=== PATIENT | female | born 1990 ===

== ENCOUNTER 2017-11-29 11:48 | Emergency (ER) | payer MEDICAID ==
[2017-11-29 11:48] VITALS: BMI 36.6
[2017-11-29 11:56] VITALS: BP 131/85; PULSE 128; RESP 16; TEMP 98.8; O2SAT 100
--- NOTE | 2017-11-29 12:26 | C.PDOC ---
History Of Present Illness 27 year old female presents to the ER complaining of 4 day history of fever, sore throat, coughing, nasal congestion, and generalized body aches. Patient states that she checked her body temperature at home, and her highest temperature was 101F. Patient reports that she took Tylenol. She admits her son is sick as well at home. Time Seen by Provider: 11/29/17 12:16 Chief Complaint (Nursing): Flu-like Symptoms History Per: Patient History/Exam Limitations: no limitations Onset/Duration Of Symptoms: Days Current Symptoms Are (Timing): Still Present Location Of Pain: Diffuse Myalgias, Headache Associated Symptoms: Fever, Sore Throat, Cough, Nasal Congestion Severity: Moderate Past Medical History Reviewed: Historical Data, Nursing Documentation, Vital Signs Vital Signs: Last Vital Signs Temp 98.8 F 11/29/17 11:51 Pulse 128 H 11/29/17 11:51 Resp 16 11/29/17 11:51 BP 131/85 11/29/17 11:51 Pulse Ox 100 11/29/17 12:57 - Medical History PMH: Diabetes Surgical History: No Surg Hx - [facility] Procedures EXC LES TEND SHEATH HAND (02/23/15) EXTRACTION OF POC, LOW CERVICAL, OPEN APPROACH (12/28/15) INTRODUCE OF OTH THERAP SUBST INTO FEM REPROD, VIA OPENING (12/28/15) Family History: States: No Known Family Hx - Social History Hx Tobacco Use: No Hx Alcohol Use: No Hx Substance Use: No - Immunization History Hx Tetanus Toxoid Vaccination: Yes Hx Influenza Vaccination: No Hx Pneumococcal Vaccination: No Review Of Systems Except As Marked, All Systems Reviewed And Found Negative. Constitutional: Positive for: Fever, Malaise. Negative for: Chills Eyes: Negative for: Vision Change, Redness ENT: Positive for: Nose Congestion, Throat Pain Cardiovascular: Negative for: Chest Pain, Palpitations Respiratory: Positive for: Cough. Negative for: Shortness of Breath, Wheezing Gastrointestinal: Negative for: Vomiting, Abdominal Pain, Diarrhea Genitourinary: Negative for: Dysuria Musculoskeletal: Positive for: Other (bodyaches) Skin: Negative for: Rash Neurological: Positive for: Headache. Negative for: Weakness, Numbness Physical Exam - Physical Exam Appears: Non-toxic, No Acute Distress Skin: Normal Color, Warm, Dry, No Rash Head: Atraumatic, Normacephalic Eye(s): bilateral: Normal Inspection, PERRL, EOMI Ear(s): Bilateral: Normal (no erythema) Nose: Normal Oral Mucosa: Moist Throat: Erythema (mild to posterior pharynx), No Exudate, No Drooling Neck: Normal ROM, Supple Chest: Symmetrical Cardiovascular: Rhythm Regular, No Murmur Respiratory: Normal Breath Sounds, No Accessory Muscle Use, No Rhonchi, No Wheezing Gastrointestinal/Abdominal: Normal Exam, Soft, No Tenderness Extremity: Bilateral: Atraumatic, Normal Color And Temperature, Normal ROM Neurological/Psych: Oriented x3, Normal Speech Gait: Steady ED Course And Treatment O2 Sat by Pulse Oximetry: 100 (RA) Pulse Ox Interpretation: Normal Medical Decision Making Medical Decision Making: Patient with multiple symptoms and sick contact at home. Exam benign and no signs of distress. Recommend symptomatic treatment for viral URI. Rx given. Patient given follow up instructions with PCP. Instructed to return to ER if symptoms worsen or new symptoms arise. Disposition Counseled Patient/Family Regarding: Diagnosis, Need For Followup, Rx Given - Disposition Disposition: HOME/ ROUTINE Disposition Time: 12:24 Condition: STABLE Additional Instructions: You have viral upper respiratory infection. Take Tylenol or Motrin alternating every 4-6 hours for Fever 100.4F or higher. Rest and drink plenty of fluids. May use cool mist humidifier or vaporizer in room. Try taking over the counter antihistamine (Claritin, Anabel, Zyrtec), Decongestant or Cough medicine ( Mucinex) as needed every 6-8 hours. Follow up with your primary medical doctor or clinic in 1 week for further evaluation. Prescriptions: Promethazine DM [Phenergan DM Syrup] 10 ml PO Q8 PRN #300 ml PRN Reason: Cough Pseudoephedrine HCl [Sudafed 24-Hour] 240 mg PO DAILY #24 tab.er.24h Instructions: Upper Respiratory Infection (ED) Forms: [facility] (Bengali) Print Language: YI - POA Present On Arrival: None - Clinical Impression Clinical Impression: Influenza-like illness, Upper respiratory infection - PA / PANEL BUILDER / Resident Statement MD/DO has reviewed & agrees with the documentation as recorded. - Scribe Statement The provider has reviewed the documentation as recorded by the Kenia Veliz All medical record entries made by the Ellenibzoltan were at my direction and personally dictated by me. I have reviewed the chart and agree that the record accurately reflects my personal performance of the history, physical exam, medical decision making, and the department course for this patient. I have also personally directed, reviewed, and agree with the discharge instructions and disposition.
== END 2017-11-29 12:47 | disposition home or self-care (01) ==
LOC: C.ER 11:48
DX: J11.1 Influenza due to unidentified influenza virus with other respiratory manifestations (principal)

== ENCOUNTER 2019-03-06 10:06 | Outpatient (CLI) | payer MEDICAID | END 2019-03-06 10:07 | disposition home or self-care (01) | LOC: C.MRIC 10:06 ==